=== PATIENT | male | born 1980 | race Caucasian/White ===

== ENCOUNTER 2020-10-24 22:20 | Emergency (ER) | payer BC, SELFPAY ==
[2020-10-24 22:35] VITALS: BP 130/87; PULSE 79; RESP 16; TEMP 36.8; O2SAT 98; BMI 31.5
--- NOTE | 2020-10-24 22:51 | W.ED.ALLEREA ---
HPI - Allergic Reaction General: Chief complaint: Allergic Reaction Stated complaint: SOB Time Seen by Provider: 10/24/20 22:45 History of Present Illness: HPI narrative: He said he took an old blank inches few minutes later he felt kind tightness and itching in his chest and throat. Need to give Benadryl and thought he went and get better drove in here now he is better and has no other symptoms. MD complaint: allergic reaction Onset (ago): hour(s) Exposure: unknown Associated symptoms: Reports difficulty breathing and itching; Deny abdominal pain, nausea or vomiting Severity: mild Treatment prior to arrival: benadryl Previous Allergic Reaction History: none Review of Systems Narrative: Patient said he felt times chest feels short of breath and had some itching in his throat and chest but now that is gone. Const: Denies: fever(s), chills or body aches Eyes: Denies: change in vision or blurry vision ENMT: Denies: throat pain or nasal congestion Card: Denies: chest pain or dyspnea on exertion Resp: Denies: dyspnea, productive cough or non-productive cough GI: Denies: abdominal pain, nausea or vomiting : Denies: difficulty urinating Musc: Denies: extremity pain Skin/Breast: Denies: rash Neuro: Denies: headache(s) Psych: Denies: anxiety or depression Hesham/Lymph: Denies: easy bruising Physical Exam Const: COMMON NORMALS: no acute distress, average body habitus and patient oriented x3 HENMT: COMMON NORMALS: normocephalic HEAD & SCALP: normal to inspection and normocephalic FACE & SINUS: normal facial exam Eye: COMMON NORMALS: conjunctivae normal GENERAL EYE: appearance normal, both eyes and all related structures CONJUNCTIVA: Yes conjunctivae normal Neck/C-Spine: COMMON NORMALS: no JVD Chest: COMMONS NORMALS: normal inspection of the chest Resp: COMMON NORMALS: normal respiratory effort and clear to auscultation bilaterally AUSCULTATION: clear to auscultation bilaterally Cardio: COMMON NORMALS: no JVD, regular rate and regular rhythm RATE: regular rate RHYTHM: regular rhythm GI: COMMON NORMALS: Normal to inspection, nondistended, normoactive bowel sounds present Extremity: COMMON NORMALS: normal to inspection and full ROM Neuro: COMMON NORMALS: patient oriented x3 Course Vital Signs: Vital signs: Vital Signs Temperature 98.2 F 10/24/20 22:35 Pulse Rate 79 10/24/20 22:35 Respiratory Rate 16 10/24/20 22:35 Blood Pressure 130/87 10/24/20 22:35 Pulse Oximetry 98 10/24/20 22:35 Discharge Plan Discharge Patient Disposition: Home Clinical Impression: Allergic reaction Qualifiers: Encounter type: initial encounter Qualified Code(s): T78.40XA - Allergy, unspecified, initial encounter Condition: Stable Prescriptions: New Medrol (Amanuel) 4 mg tablets,dose pack See Rx Instructions .ROUTE .COMPLEX Qty: 21 RF: 0 Discharge Orders: Discharge ED (Routine); Ordered 10/24/20 Ordered By: Fermin Bustamante Discharge Diet: Usual diet Discharge Activity: Increase activity as tolerated Patient Instructions: Allergic Reaction Activity Restrictions/Additional Instructions: Avoid cause of allergic reaction. Can take Benadryl. Take medicine as prescribed. Follow-up your family medical provider if no significant provement. Are can return here to the ER. Coding Level of Care Code ED [employer]
[2020-10-24] MEDS: predniSONE 20 mg Tablet 60 MG PO (23:02)
[2020-10-24 23:17] VITALS: BP 130/78; PULSE 78; RESP 18; O2SAT 96
== END 2020-10-24 23:18 | disposition home or self-care (01) ==
PROVIDERS: Emergency Provider Nurse Practitioner Family
DX: T78.40XA Allergy, unspecified, initial encounter (principal)
CPT/HCPCS: 12345; 99281; 99282; J7512